=== PATIENT | male | born 2005 | race Hispanic/Latino ===

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

== ENCOUNTER 2023-03-03 23:26 | Emergency (ER) | payer BC ==
[2023-03-04 01:00] LABS: Hemoglobin 14.9 g/dL (14.0-18.0); Manual Diff?? YES; Mean Corpuscular HGB CONC 35.2 g/dL (32.0-36.0); Mean Corpuscular Hemoglobin 32.5 pg (25.0-35.0); Mean Corpuscular Volume 92.4 fl (78.0-98.0); Mean Platelet Volume 10.8 fL (7.4-10.4); Platelet Count 196 10x3/uL (130-400); RBC Distribution Width 12.1 % (11.5-14.5); Red Blood Cell (RBC) Count 4.58 mill/uL (4.00-5.20); White Blood Cell (WBC) Count 3.4 10x3/uL (4.8-10.8)
[2023-03-04 01:22] LABS: Delete Auto Diff?? YES
[2023-03-04 01:24] LABS: ALT (SGPT) 14 U/L (8-55); AST (SGOT) 29 U/L (10-45); Albumin 4.9 g/dL (3.5-5.0); Alkaline Phosphatase 129 U/L (50-130); Anion Gap 15 mmol/L (10-20); BUN (Urea Nitrogen) 10 mg/dL (8.4-21.0); Bilirubin, Total 0.5 mg/dL (0.2-1.2); CK (CPK) 165 U/L (30-200); Calc. Creatinine Clearance 0 mL/min (70-130); Calcium 10.3 mg/dL (7.8-10.44); Carbon Dioxide 25 mmol/L (22-29); Chloride 103 mmol/L (98-107); Estimated GFR 95; Globulin 3.2 g/dL (2.4-3.5); Glucose 89 mg/dL (70-105); Lipase 16 U/L (8-78); Potassium 3.5 mmol/L (3.5-5.1); Protein, Total 8.1 g/dL (6.0-8.3); Sodium 139 mmol/L (136-145)
[2023-03-04 01:49] LABS: SARS-CoV-2 NAA Rapid Test Not Detected (NotDetected)
[2023-03-04 02:00] LABS: Band 8 % (5-11); CellaVision Operator ID LAB.JMM; Eosinophils 1 % (0-10); Large Platelets 6.9 % (0-5); Lymphocytes 19 % (28-48); Monocytes 14 % (0-4); Neutrophil 57 % (31-61); Platelet Adequacy Comment Platelets Normal; RBC Morphology Within Normal Limits; Reactive Lymphocytes 2 % (0-10); Smudge Cells 12.7 %; Total Cell Count 102
== END 2023-03-04 01:52 | disposition home or self-care (01) ==
LOC: ERS 23:26
DX: T67.5XXA Heat exhaustion, unspecified, initial encounter (principal); E86.0 Dehydration; Z20.822 Contact with and (suspected) exposure to COVID-19; K21.9 Gastro-esophageal reflux disease without esophagitis
CPT/HCPCS: 36415; 80053; 82550; 83690; 85025; 93005; 96360; U0002